=== PATIENT | female | born 2005 | race Caucasian/White ===

== ENCOUNTER 2025-02-27 04:01 | Emergency (ER) | payer MEDICAID ==
[~2025-02-27] VITALS: Ht 142.2 cm; Wt 59.0 kg
[2025-02-27 04:02] VITALS: BP 126/90; PULSE 99; RESP 12; TEMP 98.8; O2SAT 98
[2025-02-27] MEDS: KETOROLAC 15MG/ML VIAL IM ONE (04:57)
[2025-02-27] MEDS: LIDOCAINE 5% PATCH TOP SCH (05:15)
[2025-02-27] MEDS ORDERED: NAPR-1176 MT (05:37)
[2025-02-27] MEDS ORDERED: LIDO-53 TP (05:37)
== END 2025-02-27 05:49 | disposition home or self-care (01) ==
LOC: ER 04:01
DX: S80.211A Abrasion, right knee, initial encounter (principal); R51.9 Headache, unspecified; X58.XXXA Exposure to other specified factors, initial encounter; Y93.89 Activity, other specified; Y92.89 Other specified places as the place of occurrence of the external cause; Y99.8 Other external cause status
CPT/HCPCS: 99283; 73562; 96372; J1885